=== PATIENT | female | born 1970 | race Caucasian/White ===

== ENCOUNTER 2022-09-07 21:57 | Emergency (ER) | payer OTHER ==
[2022-09-07 22:08] VITALS: BP 152/77; PULSE 74; RESP 18; TEMP 97.7; BMI 38.3
[2022-09-07 22:21] LABS: HCG,QUALITATIVE URINE Negative
[2022-09-07 22:33] LABS: EPITHELIAL CELLS RARE /hpf
== END 2022-09-07 22:29 | disposition home or self-care (01) ==
LOC: FER 21:57
DX: B02.9 Zoster without complications (principal); R20.2 Paresthesia of skin
CPT/HCPCS: 81003; 81015; 84703; 99283-25